=== PATIENT | male | born 1950 | race Caucasian/White ===

== ENCOUNTER → 2023-03-02 | Outpatient (CLI) | payer MEDICARE, BC, OTHER ==
[~2023-03-02] MED LIST: ASTELIN137 MCG/Ac NS; PERCOCET 325 MG1 TAB PO; ZOCOR20 MG PO; [UNRECOGNIZED DRUG - OTHER]
== END ==
LOC: COL.RAD 12:00
DX: K44.9 Diaphragmatic hernia without obstruction or gangrene (principal)

== ENCOUNTER → 2023-03-08 | Outpatient (CLI) | payer MEDICARE, BC, OTHER | LOC: COL.CARD 09:49 | DX: I49.3 Ventricular premature depolarization (principal); R07.9 Chest pain, unspecified ==

== ENCOUNTER → 2023-10-26 | Outpatient (CLI) | payer MEDICARE, BC ==
[~2023-10-26] MED LIST changes: +ASPIRIN E.C. 8181 MG PO; +LIPITOR20 MG PO; +NORCO 325 MG-51 TAB PO; +PRESERVISION A1 EAC3 PO; +TIMOLOL MALEATE5 M1 OU
== END ==
LOC: COL.CARD 07:21
DX: I49.3 Ventricular premature depolarization (principal)

== ENCOUNTER → 2023-11-14 | Outpatient (CLI) | payer MEDICARE, BC ==
[~2023-11-14] MED LIST changes: +Regadenoson 0.08 MG/ML 5 ML SYRINGE IV SCH
[2023-11-14 10:30] VITALS: BP 144/86; PULSE 50; TEMP 97.6
[2023-11-14 11:30] VITALS: BP 142/80
[2023-11-14 11:31] VITALS: BP 146/84
[2023-11-14 11:54] VITALS: BP 144/70
[2023-11-14 11:55] VITALS: BP 138/76
== END ==
LOC: COL.RAD 09:53
DX: I49.3 Ventricular premature depolarization (principal)
CPT/HCPCS: A9500-JZ; J2785

== ENCOUNTER → 2023-12-06 | Outpatient (CLI) | payer MEDICARE, BC ==
[~2023-12-06] MED LIST changes: -Regadenoson 0.08 MG/ML 5 ML SYRINGE IV SCH
== END ==
LOC: COL.RAD 06:50
DX: I83.90 Asymptomatic varicose veins of unspecified lower extremity (principal)